=== PATIENT | male | born 1975 | race Caucasian/White ===

== ENCOUNTER 2017-11-17 16:30 | Observation (INO) ==
[2017-11-17] MEDS ORDERED: Nitroglycerin 1 INCH/GM PACKET TP ONE (16:36)
[2017-11-17] MEDS ORDERED: 0.9 % Sodium Chloride 500 ML IVC ONE (16:36)
--- NOTE | 2017-11-17 17:01 | Emergency Department Note ---
Disposition Clinical Impression: Unstable angina pectoris Disposition: Admitted As Inpatient Condition: Fair Time of Disposition: 19:45 Chest Pain HPI - General Chief Complaint: ED Chest Pain Stated Complaint: "chest pain" Source: EMS Mode of arrival: EMS Limitations: no limitations Vital Signs Reviewed: Yes Nursing Notes Reviewed: Yes - History of Present Illness HPI Narrative: 42-year-old male presents to the emergency department complaining of chest pain. Patient's history of CAD where he had 3 stents placed. His last was done in 2016. She is not any blood thinners at this time. He has not been to a manager people really. Last stress test and echo was done approximately one year ago which were normal. Said the chest pain, on all of a sudden 2 hours prior to his arrival. He said he was just getting ready for work when it occurred. He says it was an 8 out 10 chest pain. He called EMS they gave him one nitroglycerin which brought the pain down to a 6 out of 10. He was also given full dose aspirin. Patient says the pain is not radiating just located in the middle of his chest as a chest pressure. He says there is having no nausea or vomiting. Patient otherwise has no complaints. He is not complaining of any headaches, blurry vision, neck pain, back pain, fevers, chills, shortness of breath, abdominal pain, change in bowel movement, pain with urination, generalized weakness or pain or tingling going down the arms or legs. Severity scale (1-10): 6 - Related Data Home Medications Medication Instructions Recorded Confirmed No Known Home Drugs 11/17/17 11/17/17 Allergies Allergy/AdvReac Type Severity Reaction Status Date / Time No Known Allergies Allergy Verified 12/05/16 19:36 Review of Systems: 10 point review of systems done and negative unless otherwise stated in the history of present illness. Chest Pain PMH - Past Medical History Medical history: Reports: hyperlipidemia, hypertension, myocardial infarction Surgical history: Reports: other Psychiatric history: Reports: anxiety, depression, prior suicide attempt, previous psychiatric hospitalization - Social History Smoking Status: Never smoker Alcohol use: Reports: none, rarely Drug use: Reports: cocaine Physical Exam - General Limitations: no limitations General appearance: alert, in distress - Head Head exam: atraumatic, normocephalic, normal inspection - Eye Eye exam: Present: normal appearance, PERRL, EOMI - ENT ENT exam: normal exam, normal oropharynx, mucous membranes moist - Neck Neck exam: Present: normal inspection, full ROM, trachea midline - Chest Chest inspection: Present: normal inspection, symmetric chest wall rise - Respiratory Respiratory exam: Present: normal lung sounds bilaterally - Cardiovascular Cardiovascular exam: Present: regular rate, normal rhythm, normal heart sounds - Abdominal Exam Abdominal exam: Present: soft, Non-Tender. Absent: tenderness, distention, guarding, rebound, rigidity - Expanded Lower Extremity Exam Neurovascular/Tendon exam: Present: normal capillary refill. Absent: pulse deficit, motor deficit, sensory deficit, tendon deficit - Back Exam Back exam: Present: normal inspection, full ROM. Absent: tenderness, CVA tenderness (R), CVA tenderness (L) - Neurological Exam Neurological exam: Present: alert, oriented X3 - Skin Skin exam: Present: warm, dry, intact, normal color Course Course Narrative: 42-year-old male presents to emergency department with chest pain with CAD history. We did do normal twisting workup including CBC, BMP, troponin as well as EKG and chest x-ray. Patient given aspirin and nitroglycerin prior to his arrival here. We will give him a half-inch of Nitropaste. Most likely disposition will be admission. Vital Signs Temperature 98.3 F 11/17/17 16:36 Pulse Rate 81 11/17/17 16:36 Respiratory Rate 16 11/17/17 16:36 Blood Pressure 158/99 11/17/17 16:36 O2 Sat by Pulse Oximetry 99 11/17/17 16:36 Temperature 98.3 F 11/17/17 16:36 Pulse Rate 58 11/17/17 17:33 Respiratory Rate 16 11/17/17 19:00 Blood Pressure 140/97 11/17/17 19:00 O2 Sat by Pulse Oximetry 99 11/17/17 17:33 Oxygen Delivery Oxygen Delivery Room Air Chest Pain - MDM Narrative Medical decision making narrative: 42-year-old male presents to the emergency department with chest pain. Did give him nitroglycerin prior to his arrival as well as aspirin. Did give him nitro paste which gave him a worsening headache. This episode give him morphine which did help with his pain. EKG came back with no acute abnormalities chest x-ray came back with no acute abnormalities. He had a normal troponin all labs were normal as well. Due to patient's cardiac history of having 3 stents placed as well as being a year from recent cardiology workup. We felt that admission was necessary. I spoke with Dr. Webster who agreed to admit the patient to the hospital service. Patient is admitted in stable condition. Chest X-Ray 11/17/17 16:36 IMPRESSION: No acute cardiopulmonary abnormality. D/ / Kehinde Guadalupe / Kehinde Guadalupe Interpreting Provider: Kehinde Guadalupe - Medical Records Medical records reviewed: Yes I reviewed the patient's medical records. - Lab Data Lab results reviewed: Yes I reviewed the patient's lab results. Result diagrams: 11/17/17 17:10 11/17/17 17:10 Lab Results 11/17/17 11/17/17 11/17/17 Range/Units 17:10 17:10 17:10 WBC 8.6 (4.3-11.1) K/mcL RBC 5.69 H (4.19-5.50) M/mcL Hgb 15.9 (12.9-16.9) g/dL Hct 47.7 (37.5-50.1) % MCV 83.8 (83.0-100.0) fL MCH 27.9 L (28.0-33.3) pg MCHC 33.3 (31.6-35.5) g/dL RDW 13.4 (11.5-14.5) % Plt Count 284 (140-400) K/mcL MPV 8.7 L (9.4-12.4) fL Immature Gran % 0.2 (0-4) % Seg Neutrophils % 64.5 % Lymphocytes % 24.3 % Monocytes % 9.6 % Eosinophils % 1.2 % Basophils % 0.2 % Neutrophils # 5.6 (1.6-8.9) K/mcL Lymphocytes # 2.1 (0.6-4.6) K/mcL Monocytes # 0.8 (0.0-1.3) K/mcL Eosinophils # 0.1 (0.0-0.6) K/mcL Basophils # 0.0 (0.0-0.2) K/mcL PT 11.7 (9.4-12.1) Seconds INR 1.1 APTT 31.1 (26.0-36.0) Seconds Sodium 140 (136-145) mEq/L Potassium 3.7 (3.5-5.1) mEq/L Chloride 106 (98-107) mEq/L Carbon Dioxide 27 (23-29) mEq/L BUN 11 (6-20) mg/dL Creatinine 1.06 (0.70-1.30) mg/dL Est GFR ( Amer) > 60 (> 60) Est GFR (Non-Af Amer) > 60 (> 60) BUN/Creatinine Ratio 10 (6-26) Glucose 93 (70-105) mg/dL Calculated Osmolality 289 (280-300) Calcium 9.7 (8.6-10.3) mg/dL Troponin I (< 0.04) ng/mL 11/17/17 Range/Units 17:10 WBC (4.3-11.1) K/mcL RBC (4.19-5.50) M/mcL Hgb (12.9-16.9) g/dL Hct (37.5-50.1) % MCV (83.0-100.0) fL MCH (28.0-33.3) pg MCHC (31.6-35.5) g/dL RDW (11.5-14.5) % Plt Count (140-400) K/mcL MPV (9.4-12.4) fL Immature Gran % (0-4) % Seg Neutrophils % % Lymphocytes % % Monocytes % % Eosinophils % % Basophils % % Neutrophils # (1.6-8.9) K/mcL Lymphocytes # (0.6-4.6) K/mcL Monocytes # (0.0-1.3) K/mcL Eosinophils # (0.0-0.6) K/mcL Basophils # (0.0-0.2) K/mcL PT (9.4-12.1) Seconds INR APTT (26.0-36.0) Seconds Sodium (136-145) mEq/L Potassium (3.5-5.1) mEq/L Chloride (98-107) mEq/L Carbon Dioxide (23-29) mEq/L BUN (6-20) mg/dL Creatinine (0.70-1.30) mg/dL Est GFR ( Amer) (> 60) Est GFR (Non-Af Amer) (> 60) BUN/Creatinine Ratio (6-26) Glucose (70-105) mg/dL Calculated Osmolality (280-300) Calcium (8.6-10.3) mg/dL Troponin I < 0.03 (< 0.04) ng/mL - Radiology Data Radiology results reviewed: Yes I reviewed the patient's radiology results. - EKG Data EKG attestation: Yes I reviewed and interpreted this EKG. EKG results narrative: EKG done at 1646 review myself and attending shows sinus rhythm at a rate of 63 , OK interval 151, QRS 104, QTc 411 with a leftward axis. There is no acute ST changes no acute T-wave abnormalities or any other signs of ischemia. No signs of hypertrophy, heart strain, heart block. No signs of WPW/Brugada syndrome. There is no old EKG to compare with. Heart Score - Score History: Moderately Suspicious EKG: Non Specific repolarisation Disturbance Age: Less than 45 Risk Factors: Equal/Greater than 3 risk factor or history of atherosclerotic disease Troponin: Less than normal limit HEART Score Total: 4
[2017-11-17 17:18] LABS: Basophils % 0.2 %; Eosinophils # 0.1 K/mcL (0.0-0.6); Eosinophils % 1.2 %; Hematocrit 47.7 % (37.5-50.1); Hemoglobin 15.9 g/dL (12.9-16.9); Immature Granulocytes % 0.2 % (0-4); Lymphocytes # 2.1 K/mcL (0.6-4.6); Lymphocytes % 24.3 %; Mean Corpuscular HGB Conc 33.3 g/dL (31.6-35.5); Mean Corpuscular Hemoglobin 27.9 pg (28.0-33.3); Mean Corpuscular Volume 83.8 fL (83.0-100.0); Mean Platelet Volume 8.7 fL (9.4-12.4); Monocytes # 0.8 K/mcL (0.0-1.3); Monocytes % 9.6 %; Neutrophils # 5.6 K/mcL (1.6-8.9); Platelet Count 284 K/mcL (140-400); Red Blood Count 5.69 M/mcL (4.19-5.50); Red Cell Distribution Width 13.4 % (11.5-14.5); Segmented Neutrophils % 64.5 %
[2017-11-17 17:24] LABS: INR 1.1; Prothrombin Time 11.7 Seconds (9.4-12.1)
[2017-11-17 17:26] LABS: Activated Partial Thrombo Time 31.1 Seconds (26.0-36.0)
[2017-11-17] MEDS ORDERED: *HR* Morphine 2 MG/ML SYRINGE IVP ONE (17:27)
--- NOTE | 2017-11-17 17:27 | Emergency Department Note ---
START Narrative - START START: I examined this patient and my medical decision-making was reviewed with the Resident Physician. I agree with the documented findings, disposition and treatment plan as described except to the extent set forth below. 42 year old male presents to the eD with complaints of chest pain that started a few hours ago and states taht this is simliar but not as severe as when he presented with chest pain that required stents. His last stent placement was over 2 years ago and has about 3 stents that he is aware of. He has a known 70% blockage of one vessel that they did not stent and he is concerned that there may be more blockage now. Multiple risk factors we will treat with nitro/ASA and admit to medicine.
[2017-11-17 17:37] LABS: BUN/Creatinine Ratio 10 (6-26); Blood Urea Nitrogen 11 mg/dL (6-20); Calcium 9.7 mg/dL (8.6-10.3); Carbon Dioxide 27 mEq/L (23-29); Chloride 106 mEq/L (98-107); Glucose 93 mg/dL (70-105); Osmolality,Calculated 289 (280-300); Potassium 3.7 mEq/L (3.5-5.1); Sodium 140 mEq/L (136-145); eGFR For African Americans > 60 (> 60); eGFR For Non-African Americans > 60 (> 60)
[2017-11-17] MEDS ORDERED: *HR* HYDROcodone/Acet 5/325 mg TABLET PO PRN (20:31)
[2017-11-17] MEDS ORDERED: Naloxone 0.4 MG/ML INJ IVP PRN (20:31)
[2017-11-17] MEDS ORDERED: Acetaminophen 325 MG TABLET PO PRN (20:31)
[2017-11-17] MEDS ORDERED: Nitroglycerin 0.4 MG TAB.SUBL SL PRN (20:44)
[2017-11-17] MEDS ORDERED: Aspirin Enteric Coated 325 MG Tablet PO ONE (20:45)
--- NOTE | 2017-11-17 21:02 | Internal Med History&Physical ---
<Hiro Webster - Last Filed: 11/17/17 22:18> Date of Encounter: 11/17/17 Time of Encounter: 19:00 Assessment and Plan (1) Chest pain Current visit: Yes Status: Acute Acute chest pain that began this afternoon and pt. describes as centralized pressure w/radiation to back. Diaphoresis and SOB. Patient reports previous MIs 3 with stent placement 3. States first heart attack was at age 38 and 2013. Medical history of HLD, HTN but has not been taking medications due to financial reasons. Reports previous echo and stress test > 1 year ago in [place]. Echocardiogram ordered. Initial troponin less than 0.03. Trend 2. Nothing by mouth at midnight for a.m. nuclear stress test. Lipitor 40 mg by mouth now. Aspirin 325 mg now. SL nitroglycerin when necessary. Lisinopril 10 mg now then daily. Hydralazine 10 mg IVP Q6 PRN d/t current HTN. Cardiology consult ordered and discussed w/Dr. Webb w/recommendation to hold Plavix d/t last stent placement >12 months ago. Will address when pt. is seen. Will add beta kristel if necessary once urine tox screen results are known. I appreciate the consult. Pt. discussed w/Dr. Sheppard who is in agreement w/plan of care. Pt. is high risk for cardiac event and further morbidity based on previous MIs x3 requiring stents, hx, and risk factors of HTN and HLD w/o medication coverage. Observation. Qualifiers: Chest pain type: other chest pain Qualified Code(s): R07.89 - Other chest pain; R07.8 - Other chest pain (2) Dizziness Current visit: Yes Status: Acute Acute on chronic dizziness. Pt. reports three episodes of syncope during summer and residual dizziness intermittently. Bilateral carotid Doppler imaging ordered. Falls/safety precautions. (3) HLD (hyperlipidemia) Current visit: Yes Status: Chronic Hx of chronic HLD. Lipid panel in a.m. labs. Lipitor 40 mg PO now d/t chest pain. 20 mg PO HS starting tomorrow. Qualifiers: Hyperlipidemia type: pure hypercholesterolemia Qualified Code(s): E78.00 - Pure hypercholesterolemia, unspecified; E78.0 - Pure hypercholesterolemia (4) HTN (hypertension) Current visit: Yes Status: Chronic Hx of chronic HTN. Monitor pt. and VS. Lisinopril 10 mg daily and hydralazine 10 mg every 6 when necessary if SBP greater than 160 and/or DBP greater than 100 ordered. Qualifiers: Hypertension type: essential hypertension Qualified Code(s): I10 - Essential (primary) hypertension (5) Anxiety and depression Current visit: Yes Status: Chronic Hx of chronic anxiety and depression. States that he sought help when he needed it and is in a much better place in his life now. Pt. encouraged to seek help at [facility] or other facility on discharge. (6) Previous myocardial infarction older than 8 weeks Current visit: Yes Status: Resolved Pt. reports three previous MIs, first in 2012 @ age of 38. Last approximately two years ago. Stents x3. Pt. has not been taking HTN or HTN medications or Plavix d/t financial reasons. Lisinopril 10 mg daily, Hydralazine 10 mg IVP Q6 PRN if SBP >160 and/or DBP >100, Lipitor 40 mg now followed by 20 mg daily. Cardiology recommendation to hold Plavix for now d/t last stent placement >12 months ago. Aspirin 325 now. (7) Illicit drug use Current visit: Yes Status: Resolved Pt. 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 States that he stopped using in September 2016. Reports that he is working full-time and attempting to turn his life around. Urine tox screen ordered. Pt. given morphine in ED for chest pain which may result in + opiates screen. (8) Previous known suicide attempt Current visit: Yes Status: Resolved Pt. reports previous suicide attempt in April 2017. Pt. reports he is in better place in his life. Denies current suicidal or homicidal ideations or thoughts of self-harm. (9) DVT prophylaxis Current visit: Yes Status: Acute Heparin 5,000 units SQ Q8 for DVT prophylaxis. Monitor pt. for signs of bleeding. Internal Medicine - H&P: HPI Chief complaint: Chest pain Admitted From: Emergency Dept Plans for Post Hospital Care: Home History of present illness: Mr. Flor is a 42 year old male w/medical hx of hyperlipidemia, hypertension, and previous myocardial infarction 3 with placement of stents 3 presents the ED with chief complaint of chest pain that began this afternoon and radiated to back. Patient reports cardiac history of 3 previous MIs with the first at age 38 and 2013. Patient also reports stent placement 3. Patient reports dizzyness and syncope x3 during summer. Patient reports shortness of breath, diaphoresis, dizzyness, and chest pressure that is centralized. Rated pain as 8 out of 10 with pain reduced to 6 out of 10 with one nitroglycerin. Previous echo and stress test greater than 1 year ago. Patient denies recent illness, fever, chills, nausea, vomiting, changes in vision, headache, palpitations, abdominal pain, numbness, tingling, pre-syncope, or syncope recently. Past Med Surg Social Fam HX - Past Medical History Source: patient, old records reviewed Medical history: hyperlipidemia, hypertension, myocardial infarction (x3 w/ stent placement x3) Psychiatric history: anxiety, depression, prior suicide attempt, previous psychiatric hospitalization - Past Surgical History Surgical History: angioplasty/stent (x3) - Social History Smoking Status: Never smoker Smokeless Tobacco Status: No Alcohol use: none, rarely Drug use: cocaine Occupational status: employed Current living situation: Home Activity Level: Independent ambulation Recent Out of Country Travel Within the Last 8 Weeks: No Exposure or Possible Exposure to Illness During Travel: No - Family History Mother Race: Family Member Ethnicity: Non- Living Status: Age at : 71 Cause of : CHF Hx Family Cardiac Disorders: Yes (HD, OR @ age 30, OR x8, CAD) Father Race: Family Member Ethnicity: Non- Living Status: Age at : 65 Cause of : CHF Hx Family Cardiac Disorders: Yes (OR, CHF) Brother Race: Family Member Ethnicity: Non- Living Status: Age at : 43 Cause of : OR Sister Race: Family Member Ethnicity: Non- Living Status: Still Living Hx Family Respiratory Disorders: Yes (Emphysema) Internal Medicine - H&P: Meds No Known Home Drugs 11/17/17 [History] 3 Allergy/AdvReac Type Severity Reaction Status Date / Time No Known Allergies Allergy Verified 12/05/16 19:36 All Systems PM: A 10-system review of systems was performed and is negative for pertinent findings except as documented above in the HPI. - Constitutional Constitutional: no chills, no fever(s), no night sweats - EENT Eyes: no change in vision, no discharge, no pain, no photophobia Ears: no ear discharge, no ear pain, no tinnitus Nose, mouth and throat: no dysphagia, no nasal discharge, no neck pain, no sore throat - Breasts Breasts: as per HPI - Cardiovascular Cardiovascular ROS IM: as per HPI, chest pain (Centralized chest pressure), diaphoresis, dyspnea, dyspnea on exertion, lightheadedness, syncope (x3 during summer), no palpitations - Respiratory Respiratory: as per HPI, dyspnea, dyspnea on exertion, no cough, no wheezing, no excessive phlegm production - Gastrointestinal Gastrointestinal: no abdominal pain, no diarrhea, no hematemesis, no hematochezia, no melena, no nausea, no vomiting - Genitourinary Genitourinary ROS male: as per HPI - Musculoskeletal Musculoskeletal ROS IM: no numbness, no tingling - Integumentary Integumentary IM: no rash, no unusual bruising - Neurological Neurological ROS: as per HPI, dizziness, no confusion, no convulsions, no focal weakness, no numbness, no tingling, no tremor(s) - Psychiatric Psychiatric: as per HPI - Endocrine Endocrine IM: as per HPI - Hematologic/Lymphatic Hematologic/Lymphatic: no easy bruising - Allergic/Immunologic Allergic/Immunologic: as per HPI - Constitutional Vitals: Temp Pulse Resp BP Pulse Ox 97.9 F 62 16 170/105 97 11/17/17 20:08 11/17/17 20:08 11/17/17 20:08 11/17/17 20:08 11/17/17 20:08 General appearance: Present: cooperative, A&O X 3, pleasant, no acute distress, answers questions appropriately - Head Head exam: Present: atraumatic, normocephalic - Eye Eye exam: Present: PERRL, conjuntiva pink, sclera anicteric Pupils: Present: PERRL - ENT ENT exam: Present: normal exam - Neck Neck exam general surgery: Present: normal inspection, supple, trachea midline. Absent: lymphadenopathy - Respiratory Respiratory exam: Present: CTAB. Absent: accessory muscle use, rales, rhonchi, wheezes - Cardiovascular Cardiovascular exam: Present: RRR, +S1, +S2. Absent: diastolic murmur, gallop, rubs, systolic murmur - GI/Abdominal GI/Abdominal exam: Present: normal bowel sounds, soft, no peritoneal signs. Absent: distended, tenderness - Rectal Rectal exam: Present: deferred - Additional comments: exam deferred. - Extremities Exam Extremities exam: Present: warm, radial pulses palpable and symmetrical. Absent : calf tenderness, cyanotic, pedal edema - Back Exam Back exam: Present: normal inspection - Neurological Exam Neurological exam: Present: CN II-XII intact, oriented X3, no focal deficits. Absent: pronater drift, facial droop, speech deficit - Psychiatric Psychiatric exam: Present: normal affect, normal mood - Skin Skin exam: Present: dry, intact Internal Med - H&P Results - Labs CBC & Chem 7: 11/17/17 17:10 11/17/17 17:10 - Diagnostic Studies Chest x-ray Additional comments: Impressions Chest X-Ray 11/17/17 16:36 IMPRESSION: No acute cardiopulmonary abnormality. D/ / Kehinde Guadalupe / Kehinde Guadalupe Interpreting Provider: Kehinde Guadalupe <Dewayne Sheppard - Last Filed: 11/17/17 23:20> Date of Encounter: 11/17/17 Time of Encounter: 21:30 - Constitutional Vitals: Temp Pulse Resp BP Pulse Ox 98.0 F 70 16 146/85 97 11/17/17 22:59 11/17/17 22:59 11/17/17 22:59 11/17/17 22:59 11/17/17 22:59 General appearance: Present: A&O X 3, pleasant, no acute distress - Eye Eye exam: Present: PERRL. Absent: scleral icterus - ENT ENT exam: Present: normal exam - Respiratory Respiratory exam: Present: CTAB. Absent: rales, rhonchi, wheezes - Cardiovascular Cardiovascular exam: Present: RRR, +S1, +S2. Absent: diastolic murmur, systolic murmur - GI/Abdominal GI/Abdominal exam: Present: soft. Absent: tenderness - Extremities Exam Extremities exam: Present: warm. Absent: pedal edema - Back Exam Back exam: Absent: CVA tenderness (L), CVA tenderness (R) Internal Med - H&P Results - Labs CBC & Chem 7: 11/17/17 17:10 11/17/17 17:10 Labs: Cardiac Enzymes 02/01/18 Range/Units 22:24 Troponin I < 0.03 (< 0.04) ng/mL - EKG Data -: EKG Interpreted by Myself - Impressions NSR; old inferior OR; no acute ST-T changes - Diagnostic Studies Chest x-ray Status: image reviewed by me (negative) - Attending Attestation I discussed the patient TUOLUMNE, PMH, ROS, lab data, and exam findings with Rene Webster CNP. I then saw and examined patient independently as well. Patient has h/o CAD and h/o illicit drug use. He has been "clean" since September,. However, he admitted to me that he last used cocaine about 2 weeks ago. He admits that he "goofed up" and "fell off the wagon" 2 weeks ago. He denies any other illicit drug use since September,. He unfortunately has 3 roommates, 2 of which still use illicit drugs. He is exposed to it frequently. He has resisted the temptation until 2 weeks ago. I counseled him at length on the need to abstain and to remove himself from his home environment. He is actively looking for alternate housing situation. I agree with Rene's plan as detailed above. We will proceed with cardiac work- up. Given his cocaine use and + UDS for cocaine, we will avoid beta-blockers. Other than my comments above and noted exam findings, I agree with Rene's assessment and plan.
[2017-11-17] MEDS ORDERED: *HR* OxyCODONE Immed Rel 5 MG TABLET PO PRN (21:26)
[2017-11-17 23:06] LABS: Amphetamine Screen,Urine Negative ng/mL (Cutoff=1000); Barbiturate Screen,Urine Negative ng/mL (Cutoff=200); Benzodiazepines Screen,Urine Negative ng/mL (Cutoff=200); Cannabinoid Screen,Urine Negative ng/mL (Cutoff = 50); Cocaine Screen,Urine Positive ng/mL (Cutoff= 300); Opiate Screen,Urine Positive ng/mL (Cutoff=300); Phencyclidine Screen,Urine Negative ng/mL (Cutoff=25)
[2017-11-17] MEDS: *HR* Heparin 5,000 UNIT/ML VIAL SQ SCH (23:41)
[2017-11-18 06:30] LABS: Hemoglobin A1C 4.7 %
[2017-11-18 06:31] LABS: Basophils # 0.1 K/mcL (0.0-0.2); Basophils % 0.7 %; Eosinophils # 0.2 K/mcL (0.0-0.6); Eosinophils % 3.4 %; Immature Granulocytes % 0.1 % (0-4); Lymphocytes # 2.5 K/mcL (0.6-4.6); Lymphocytes % 35.9 %; Mean Corpuscular HGB Conc 33.6 g/dL (31.6-35.5); Mean Corpuscular Hemoglobin 28.2 pg (28.0-33.3); Mean Platelet Volume 9.8 fL (9.4-12.4); Monocytes # 0.9 K/mcL (0.0-1.3); Monocytes % 12.1 %; Neutrophils # 3.4 K/mcL (1.6-8.9); Platelet Count 237 K/mcL (140-400); Red Cell Distribution Width 13.5 % (11.5-14.5); Segmented Neutrophils % 47.8 %
[2017-11-18 06:32] LABS: Hemoglobin 14.1 g/dL (12.9-16.9)
[2017-11-18 06:59] LABS: Alanine Aminotransferase 47 Units/L (7-52); Albumin 3.5 g/dL (3.5-5.7); Albumin/Globulin Ratio 1.3 (1.1-2.2); Alkaline Phosphatase 80 Units/L (34-104); Aspartate Amino Transferase 37 Units/L (13-39); BUN/Creatinine Ratio 19 (6-26); Bilirubin,Total 0.5 mg/dL (0.3-1.0); Blood Urea Nitrogen 15 mg/dL (6-20); Calcium 8.7 mg/dL (8.6-10.3); Carbon Dioxide 23 mEq/L (23-29); Chloride 109 mEq/L (98-107); Chol/HDL Ratio 5.9 (0-4.9); Cholesterol 176 mg/dL (< 200); Globulin 2.8 g/dL (2.4-3.5); Glucose 84 mg/dL (70-105); HDL Cholesterol 30 mg/dL (40-59); LDL Cholesterol,Calculated 129 mg/dL (0-99); Magnesium 1.8 mg/dL (1.6-2.6); Osmolality,Calculated 288 (280-300); Potassium 3.7 mEq/L (3.5-5.1); Sodium 139 mEq/L (136-145); Total Protein 6.3 g/dL (6.4-8.9); Triglycerides 86 mg/dL (< 150); eGFR For African Americans > 60 (> 60); eGFR For Non-African Americans > 60 (> 60)
[2017-11-18] MEDS: Regadenoson 0.4 MG/5 ML SYRINGE IVP ONE ×2 (11:15→12:42)
[2017-11-18] MEDS: *HR* Heparin 5,000 UNIT/ML VIAL SQ SCH ×3 (11:15→21:59)
[2017-11-18] MEDS: Aspirin Enteric Coated 81 MG Tablet PO SCH (11:16)
[2017-11-18] MEDS ORDERED: Regadenoson 0.4 MG/5 ML SYRINGE IVP ONE (12:35)
--- NOTE | 2017-11-18 16:59 | Internal Med Progress Note ---
Date of Encounter: 11/18/17 Time of Encounter: 13:55 - Assessment and plan (1) Chest pain Current Visit: Yes Status: Acute Assessment and plan: Acute chest pain that began this afternoon and pt. describes as midsternal pressure with radiation to his back with associated diaphoresis and SOB. Patient reports previous MIs 3 with stent placement 3. States first heart attack was at age 38 and 2013. Pt reports that he has not been taking his medications due to financial constraints. First part of stress test was completed, the computer was canceled by cardiology due to cocaine use. Initial portion of stress test showed a small, mild intensity apical inferior defect. I spoke with cardiology MASTER MACHINIST who states that patient should not use cocaine for at least 30 days, follow-up with cardiology for discussion of whether to continue stress test. EKG normal sinus rhythm. Continue aspirin, statin, AceI Continue telemetry Qualifiers: Chest pain type: other chest pain Qualified Code(s): R07.89 - Other chest pain; R07.8 - Other chest pain (2) DVT prophylaxis Current Visit: Yes Status: Acute Assessment and plan: Heparin subcutaneous. (3) Anxiety and depression Current Visit: Yes Status: Chronic Assessment and plan: Chronic. Patient denies SI or HI. Patient currently takes no home medications. Pt has been given information on resources for mental health counseling. (4) HLD (hyperlipidemia) Current Visit: Yes Status: Chronic Assessment and plan: Triglycerides cholesterol within normal limits. HDL is low. Patient has been started on a statin, will continue after discharge. Qualifiers: Hyperlipidemia type: pure hypercholesterolemia Qualified Code(s): E78.00 - Pure hypercholesterolemia, unspecified; E78.0 - Pure hypercholesterolemia (5) HTN (hypertension) Current Visit: Yes Status: Chronic Assessment and plan: Chronic. Continue home medications. Qualifiers: Hypertension type: essential hypertension Qualified Code(s): I10 - Essential (primary) hypertension (6) Illicit drug use Current Visit: Yes Status: Resolved Assessment and plan: Patient's drug screen is positive for opiates and cocaine. Patient reports different stories for why his urine drug screen was positive for cocaine. He reports to admitting practitioner that he had gotten paid and fills the wagon approximately 10 days ago after being clean since August,. He reports that he lives with 3 other men, 2 of whom are frequent drug users. 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 Patient also reports to primary nurse that he is homeless and has nowhere to go , he tells the oncology social work that he bounces from friend's home to friend's home and does not need any assistance. Patient's stress test has been canceled due to cocaine use. He will need to follow-up after 30 days of being clean for continuation of stress test. (7) Previous known suicide attempt Current Visit: Yes Status: Resolved Assessment and plan: Prior history. Patient takes no medications at home. He denies any suicidal or homicidal ideations. (8) Previous myocardial infarction older than 8 weeks Current Visit: Yes Status: Resolved Assessment and plan: Patient reports PR 3 with stent placement each time. He has not been taking any of his medications or Plavix due to financial reasons. Cardiology recommended to hold Plavix for now due to last stent placement greater than 12 months ago. Patient will continue aspirin 325 mg - Time Spent With Patient less than 15 minutes - Subjective Interval history: Patient was seen and assessed at bedside at 1355. He denies any chest pain. He denies headache, nausea, vomiting, diaphoresis. No abdominal pain, chest pain or shortness of breath. He denies dizziness or lightheadedness, no numbness or tingling to extremities. Patient was overly concerned with explaining why he had used cocaine. 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 Admitting nurse practitioner states that he told him that he lives with a couple of other guys who were doing cocaine, he got paid and fell off the wagon since been clean since August,. Patient currently denies any chest pain. He denies suicidal or homicidal ideations. - Constitutional Vitals: Temp Pulse Resp BP Pulse Ox 98.0 F 65 18 147/75 100 11/18/17 15:26 11/18/17 15:26 11/18/17 15:26 11/18/17 15:26 11/18/17 15:26 General appearance: Present: cooperative, A&O X 3, pleasant, no acute distress, answers questions appropriately - Head Head exam: Present: atraumatic, normal inspection, normocephalic - Eye Eye exam: Present: normal appearance, conjuntiva pink, sclera anicteric - Neck Neck exam general surgery: Present: supple, trachea midline. Absent: lymphadenopathy, tenderness - Respiratory Respiratory exam: Present: CTAB. Absent: accessory muscle use, chest wall tenderness, decreased breath sounds, rales, respiratory distress, rhonchi, wheezes - Cardiovascular Cardiovascular exam: Present: RRR, +S1, +S2. Absent: diastolic murmur, gallop, rubs, systolic murmur - GI/Abdominal GI/Abdominal exam: Present: normal bowel sounds, soft. Absent: distended, hepatomegaly, tenderness - Extremities Exam Extremities exam: Present: normal capillary refill, normal inspection, warm, radial pulses palpable and symmetrical. Absent: calf tenderness, cyanotic, pedal edema - Neurological Exam Neurological exam: Present: alert, oriented X3, no focal deficits. Absent: facial droop, speech deficit - Skin Skin exam: Present: dry, intact, normal color, warm. Absent: rash Internal Medicine: Result - Labs CBC & Chem 7: 11/18/17 04:54 11/18/17 04:54 Labs: Short CBC 11/18/17 Range/Units 04:54 WBC 7.1 (4.3-11.1) K/mcL Hgb 14.1 D (12.9-16.9) g/dL Hct 42.0 (37.5-50.1) % Plt Count 237 (140-400) K/mcL Neutrophils # 3.4 (1.6-8.9) K/mcL BMP 11/18/17 04:54 Sodium 139 Potassium 3.7 Chloride 109 H Carbon Dioxide 23 BUN 15 Creatinine 0.79 Glucose 84 Calcium 8.7 Cardiac Enzymes 11/17/17 11/18/17 Range/Units 22:24 04:54 Troponin I < 0.03 < 0.03 (< 0.04) ng/mL Liver Function 11/18/17 Range/Units 04:54 Total Bilirubin 0.5 (0.3-1.0) mg/dL AST 37 (13-39) Units/L ALT 47 (7-52) Units/L Alkaline Phosphatase 80 (34-104) Units/L Albumin 3.5 (3.5-5.7) g/dL - ABG Interpretation ABG results: PT/INR, D-dimer PT 11.7 Seconds (9.4-12.1) 11/17/17 17:10 - Impressions Impressions Echocardiogram 11/17/17 20:39 Impressions: LVEF 55-60%. Normal LV chamber size, wall thickness and function. Indeterminate diastolic function. Normal right ventricular structure and function. No evidence of pulmonary hypertension. No significant valvular dysfunction. Left Ventricular Wall Motion: Rest Echo Findings All wall segments showed normal motion. Findings: Study Quality * Technically adequate exam. ECG Findings * Normal sinus rhythm. Left Ventricle * LVEF 55-60%. * Normal LV chamber size, wall thickness and function. * Indeterminate diastolic function. Right Ventricle * Normal right ventricular structure and function. Left Atrium * Mildly dilated left atrium. Right Atrium * Normal right atrial size. Aortic Valve * Trileaflet aortic valve with normal function. * No aortic regurgitation. * No aortic stenosis. Mitral Valve * Normal mitral valve structure and function. * No mitral stenosis. * No mitral regurgitation. Tricuspid Valve * Normal tricuspid valve structure and function. * Trace tricuspid regurgitation. * No evidence of pulmonary hypertension. Pulmonic Valve * Normal pulmonic valve structure and function. * Trace pulmonic regurgitation. Aorta * Normally sized aortic root. Pericardium * The pericardium appears normal. IVC * Normal IVC dimensions and inspiratory collapse. Pulmonary Artery * Normal visualized portions of the main pulmonary artery. Consult Discharge Plan - Plan Referrals: NONE,PCP [Primary Care Provider] -
--- NOTE | 2017-11-18 17:50 | Electrocardiograph Report ---
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
[2017-11-19 04:11] LABS: Basophils # 0.1 K/mcL (0.0-0.2); Basophils % 0.8 %; Eosinophils # 0.2 K/mcL (0.0-0.6); Eosinophils % 2.9 %; Immature Granulocytes % 0.4 % (0-4); Lymphocytes # 3.2 K/mcL (0.6-4.6); Lymphocytes % 40.2 %; Mean Corpuscular HGB Conc 33.3 g/dL (31.6-35.5); Mean Corpuscular Hemoglobin 27.7 pg (28.0-33.3); Mean Corpuscular Volume 83.2 fL (83.0-100.0); Mean Platelet Volume 8.9 fL (9.4-12.4); Monocytes % 12.3 %; Neutrophils # 3.5 K/mcL (1.6-8.9); Platelet Count 254 K/mcL (140-400); Red Blood Count 5.05 M/mcL (4.19-5.50); Red Cell Distribution Width 13.2 % (11.5-14.5); Segmented Neutrophils % 43.4 %
[2017-11-19 04:42] LABS: Alanine Aminotransferase 47 Units/L (7-52); Albumin 3.5 g/dL (3.5-5.7); Albumin/Globulin Ratio 1.3 (1.1-2.2); Alkaline Phosphatase 80 Units/L (34-104); Aspartate Amino Transferase 35 Units/L (13-39); BUN/Creatinine Ratio 13 (6-26); Bilirubin,Total 0.4 mg/dL (0.3-1.0); Blood Urea Nitrogen 11 mg/dL (6-20); Carbon Dioxide 28 mEq/L (23-29); Chloride 108 mEq/L (98-107); Globulin 2.7 g/dL (2.4-3.5); Glucose 93 mg/dL (70-105); Osmolality,Calculated 289 (280-300); Potassium 3.7 mEq/L (3.5-5.1); Sodium 140 mEq/L (136-145); Total Protein 6.2 g/dL (6.4-8.9); eGFR For African Americans > 60 (> 60); eGFR For Non-African Americans > 60 (> 60)
[2017-11-19] MEDS: *HR* Heparin 5,000 UNIT/ML VIAL SQ SCH ×2 (06:11→13:56)
[2017-11-19] MEDS: Aspirin Enteric Coated 81 MG Tablet PO SCH (10:04)
[2017-11-19 12:33] VITALS: BP 146/91
--- NOTE | 2017-11-19 14:40 | Discharge Summary ---
Date of Encounter: 11/19/17 Time of Encounter: 10:15 - Discharge Diagnosis (1) Chest pain Priority: Secondary Status: Acute Comments: Patient denies chest pain. First part of a stress test was completed yesterday , the remainder was canceled due to his cocaine use. She will portion of the test showed a small, mild intensity apical inferior defect. Patient should follow up with cardiology when he has not used cocaine for at least 30 days. His troponins were negative. His EKG was normal sinus rhythm without any ST changes. Echo with preserved EF, indeterminate diastolic function and no significant valvular dysfunction. Continue aspirin, statin, J LUIS inhibitor. Pt reports he has not been taking his medications due to financial constraints, reports that he is working currently and will be able to follow-up. I will write prescriptions for 1 month of medications. Patient will be discharged and encouraged follow-up with primary care and cardiology. Qualifiers: Chest pain type: other chest pain Qualified Code(s): R07.89 - Other chest pain; R07.8 - Other chest pain (2) DVT prophylaxis Priority: Secondary Status: Acute Comments: Heparin subcutaneous twice a day. Patient has been ambulatory. (3) Anxiety and depression Priority: Secondary Status: Chronic Comments: Chronic. He denies any suicidal or homicidal ideations. He is not on any medications for depression or anxiety. He has been given information for resources for mental health counseling. (4) HLD (hyperlipidemia) Priority: Secondary Status: Chronic Comments: She has been started on a statin, will continue after discharge. Qualifiers: Hyperlipidemia type: pure hypercholesterolemia Qualified Code(s): E78.00 - Pure hypercholesterolemia, unspecified; E78.0 - Pure hypercholesterolemia (5) HTN (hypertension) Priority: Secondary Status: Chronic Comments: Chronic. Continue medications. Will give prescriptions for one month. Qualifiers: Hypertension type: essential hypertension Qualified Code(s): I10 - Essential (primary) hypertension (6) Illicit drug use Priority: Secondary Status: Resolved Comments: Patient's drug screen is positive for opiates and cocaine. Patient reports different stories for why his urine drug screen was positive for cocaine. He reports to admitting practitioner that he had gotten paid and fills the wagon approximately 10 days ago after being clean since August,. He reports that he lives with 3 other men, 2 of whom are frequent drug users. 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 Patient also reports to primary nurse that he is homeless and has nowhere to go , he tells the public health social worker that he bounces from friend's home to friend's home and does not need any assistance. Patient's stress test has been canceled due to cocaine use. He will need to follow-up after 30 days of being clean for continuation of stress test. (7) Previous known suicide attempt Priority: Secondary Status: Resolved Comments: Prior history. Patient takes no medications at home. No suicidal or homicidal ideations at this time. (8) Previous myocardial infarction older than 8 weeks Priority: Secondary Status: Resolved Comments: Patient reports history of [place] 3 with stent placement H time. He has not been taking any of his medications due to financial reasons. Cardiology has recommended total Plavix and continue aspirin 325 mg daily. He denies chest pain. Plan as above. - Discharge Medications Prescriptions: Aspirin Enteric Coated [Aspirin EC] 81 mg PO DAILY #30 tablet. Atorvastatin [Lipitor] 10 mg PO HS #30 tablet Lisinopril [Zestril] 10 mg PO DAILY #30 tablet Home Medications: Aspirin Enteric Coated [Aspirin EC] 81 mg PO DAILY #30 tablet. 11/19/17 [Rx] Atorvastatin [Lipitor] 10 mg PO HS #30 tablet 11/19/17 [Rx] Lisinopril [Zestril] 10 mg PO DAILY #30 tablet 11/19/17 [Rx] Allergies/Adverse Reactions: 3 Allergy/AdvReac Type Severity Reaction Status Date / Time No Known Allergies Allergy Verified 12/05/16 19:36 Procedures/tests Complete & Pending: Procedures Performed prior 72 hours Category Date Time Status NM lois perf SPECT single [NM] Routine Exams 11/18/17 11:45 Taken ECG 12 lead ECG [ECG] Stat Y 11/17/17 21:48 Ordered EV carotid duplex imaging BI Routine Y 11/17/17 20:43 Completed EV echocardiogram Routine Y 11/17/17 20:39 Completed Date of admission: 11/17/17 18:28 Primary care physician: PCP NONE Consults: 11/17/17 20:35 Consult to Profile Mill Operator Tape Control [CONS] Routine Reason for SW Consult: Patient reports being under a lot of stress trying to turn his life around and needs information about possible new housing needs and assistance. Discharging clinician: Anupama Caban Anticipated date of discharge: 11/19/17 - Patient Status Disposition: Home, Self-Care Condition: Good Functional capacity at discharge: independent ambulation Overall status at discharge: patient is back to baseline - Discharge Instructions Follow Up With: NONE,PCP [Primary Care Provider] - Additional Instructions: Please follow up with your PCP in the next 7-10 days for a recheck. Return to the ER as needed for any other problems or concerns or if your symptoms return or worsen. Take your medications as directed and make sure to get refills from your PCP when you follow up. Make sure that you follow up with cardiology. You must be cocaine free for 30 days to complete your stress test. Diet and activities as tolerated. - Diet and Activity Activity: increase activity as tolerated Diet: advance to your usual diet Hospital course: Mr. Flor is a 42 year old male with past medical history of hypertension, hyperlipidemia, coronary artery disease, [place] and stents 3, depression and anxiety, and previous suicideattempt. He presented to the emergency department with chest pain. His EKG was normal sinus rhythm with no ST changes, troponins were negative. Echocardiogram with preserved function and no valvular dysfunction. Patient completed first day stress test, secondary was canceled due to cocaine use. Patient will need to follow up with primary care for continued treatment and evaluation. He has been nonadherent to medication regimen due to financial constraints. I will give him prescriptions for 30 days of medication and he will need to follow-up. Vitals are stable. Patient is ready for discharge - Time Spent with Patient Total time spent providing and/or coordinating discharge services: Less than 30 minutes - Constitutional Vitals: Temp Pulse Resp BP Pulse Ox 98.7 F 67 18 146/91 99 11/19/17 12:29 11/19/17 12:29 11/19/17 12:29 11/19/17 12:29 11/19/17 12:29 General appearance: Present: cooperative, A&O X 3, pleasant, no acute distress, answers questions appropriately - Head Head exam: Present: atraumatic, normal inspection, normocephalic - Eye Eye exam: Present: conjuntiva pink, sclera anicteric - Neck Neck exam general surgery: Present: supple, trachea midline. Absent: lymphadenopathy, tenderness - Respiratory Respiratory exam: Present: CTAB. Absent: accessory muscle use, chest wall tenderness, decreased breath sounds, rales, rhonchi, wheezes - Cardiovascular Cardiovascular exam: Present: RRR, +S1, +S2. Absent: diastolic murmur, gallop, rubs, systolic murmur - GI/Abdominal GI/Abdominal exam: Present: normal bowel sounds, soft. Absent: distended, hepatomegaly, tenderness - Extremities Exam Extremities exam: Present: normal inspection, warm, radial pulses palpable and symmetrical. Absent: calf tenderness, cyanotic, pedal edema, tenderness - Neurological Exam Neurological exam: Present: alert, oriented X3, no focal deficits. Absent: facial droop, speech deficit - Skin Skin exam: Present: dry, intact, normal color, warm. Absent: rash
== END 2017-11-19 17:25 | disposition home or self-care (01) ==
LOC: EMEROO 16:30 → 3BNU 16:30
PROVIDERS: ADMIT Nurse Practitioner Family; ATTEND Registered Nurse